=== PATIENT | female | born 2000 | race Hispanic/Latino ===

== ENCOUNTER 2023-04-18 11:24 | Emergency (ER) | payer OTHER ==
[~2023-04-18] VITALS: Ht 175.3 cm; Wt 124.7 kg
[2023-04-18 12:09] LABS: RAPID GROUP A STREP negative (NEGATIVE)
[2023-04-18 12:13] LABS: SARS-CoV-2, RNA, NAAT NEGATIVE SARS CoV-2 (NEGATIVE)
[2023-04-18 12:20] LABS: INFLUENZA TYPE B Negative For Type B (NEGATIVE)
[2023-04-18 12:26] LABS: INFLUENZA TYPE A Positive For Type A (NEGATIVE)
[2023-04-18] MEDS ORDERED: BENZ200C53 PO (12:51)
[2023-04-18] MEDS ORDERED: BROM118S48 PO (12:51)
[2023-04-18] MEDS ORDERED: ALBU90AE2 IH (12:51)
[2023-04-18] MEDS ORDERED: OSEL75 PO (12:51)
[2023-04-18 13:03] VITALS: BP 128/76; PULSE 88; RESP 18; O2SAT 99
== END 2023-04-18 13:05 | disposition home or self-care (01) ==
LOC: EDH 11:24
DX: J10.1 Influenza due to other identified influenza virus with other respiratory manifestations (principal); B34.9 Viral infection, unspecified; Z20.822 Contact with and (suspected) exposure to COVID-19
CPT/HCPCS: 87635; 87804; 87880

== ENCOUNTER 2023-08-14 22:17 | Emergency (ER) | payer OTHER ==
[~2023-08-14] VITALS: Ht 175.3 cm; Wt 126.6 kg
[~2023-08-14 22:17] MED LIST: ALBU90AE2 IH; BENZ200C53 PO; BROM118S48 PO; OSEL75 PO
[2023-08-14 23:14] LABS: BASOPHILS # (AUTO) 0.02 K/uL (0.00-0.20); BASOPHILS % (AUTO) 0.2 % (0.0-5.0); EOSINOPHILS # (AUTO) 0.04 K/uL (0.00-0.70); EOSINOPHILS % (AUTO) 0.4 % (0.0-8.0); HEMATOCRIT 38.9 % (36-48); IMMATURE GRANULOCYTE ABSOLUTE 0.04 K/uL (0-1); LYMPHOCYTES # (AUTO) 1.8 K/uL (1.0-4.8); LYMPHOCYTES % (AUTO) 16.2 % (21.0-51.0); MEAN CORPUSCULAR HEMOGLOBIN 29.8 pg (27.0-33.0); MEAN CORPUSCULAR VOLUME 85.3 fL (80-100); MONOCYTES # (AUTO) 0.6 K/uL (0.1-1.0); MONOCYTES % (AUTO) 5.6 % (3.0-13.0); NEUTROPHILS # (AUTO) 8.4 K/uL (1.8-7.7); NEUTROPHILS % (AUTO) 77.2 % (40.0-77.0); PLATELET COUNT (AUTO) 387 K/uL (130-400); RED BLOOD CELL COUNT(AUTO) 4.56 MIL/uL (4.00-5.50); RED CELL DISTRIBUTION WIDTH 12.4 % (11.0-15.5); WHITE BLOOD COUNT (AUTO) 10.9 K/uL (4.8-10.8)
[2023-08-14 23:22] LABS: CREATININE 0.8 mg/dL (0.5-1.0); POTASSIUM 3.5 mmol/L (3.5-5.1)
[2023-08-14] MEDS: ONDANSETRON 4MG INJ IVP ONE (23:30)
[2023-08-14] MEDS: FAMOTIDINE 20MG VIAL IV ONE (23:30)
[2023-08-14] MEDS: LACTATED RINGERS 1000ML 1,000 ML IV ONE (23:30)
[2023-08-14] MEDS: MORPHINE 4 MG SYG ONE (23:31)
[2023-08-14 23:32] LABS: BILIRUBIN,TOTAL 1.2 mg/dL (0.2-1.0); TOTAL PROTEIN, SERUM 8.7 g/dL (6.0-8.3)
[2023-08-14] MEDS: MORPHINE 2 MG SYG IVP ONE (23:40)
[2023-08-14 23:45] LABS: APPEARANCE,URINE CLEAR (CLEAR); BILIRUBIN,URINE NEGATIVE (NEGATIVE); COLOR,URINE LIGHT-YELLOW (YELLOW); GLUCOSE, URINE (UA) NEGATIVE (NEGATIVE); KETONES,URINE NEGATIVE (NEGATIVE); LEUKOCYTE ESTERASE ,URINE NEGATIVE Leu/uL (NEGATIVE); NITRATE,URINE NEGATIVE (NEGATIVE); PH,URINE 6.5 (5.0-8.0); PROTEIN,URINE NEGATIVE (NEGATIVE); UROBILINOGEN,URINE 0.2 mg/dL (0.2-1.0)
[2023-08-14 23:51] LABS: ADD UA MICROSCOPIC YES
[2023-08-14 23:53] LABS: BACTERIA,URINE RARE /HPF (None Seen); SQUAMOUS EPITHELIAL CELL,UR RARE /HPF (0-2)
[2023-08-15] MEDS ORDERED: FAMO-136 PO (02:15)
[2023-08-15] MEDS ORDERED: ONDA4TAB10 PO ×2 (02:15→02:30)
[2023-08-15 02:23] VITALS: BP 137/81; PULSE 97; RESP 18; O2SAT 97
[2023-08-15] MEDS ORDERED: FAMO20TA8 PO (02:30)
[2023-08-15] MEDS: LIDOCAINE HCL 2% VISCOUS 15 ML UDCUP PO ONE (02:39)
[2023-08-15] MEDS: MAG/ALUM/SIMETH 30 ML UDCUP PO ONE (02:39)
== END 2023-08-15 02:54 | disposition home or self-care (01) ==
LOC: EDH 22:17
DX: K52.9 Noninfective gastroenteritis and colitis, unspecified (principal); R10.2 Pelvic and perineal pain; Z79.899 Other long term (current) drug therapy
CPT/HCPCS: 99284; 96374; 96375; 96361; 80053; 84702; 85025; 81001; 36415; J7120; J3490; J2405; J2270

== ENCOUNTER 2025-02-17 23:45 | Emergency (ER) | payer BC ==
[~2025-02-17] VITALS: Ht 175.3 cm; Wt 112.5 kg
[~2025-02-17 23:45] MED LIST changes: -ALBU90AE2 IH; +ALBU90AE3 IH; +FAMO-136 PO; +FAMO20TA8 PO; +ONDA-243 PO
--- NOTE | 2025-02-18 00:13 | ERN ---
ED Note History of Present Illness Stated Complaint: BUMP ON CHEST, PAIN TO ARM AND CHEST Chief Complaint: Abscess Time Seen by MD: 23:46 Time Seen by Midlevel: 23:46 Dictation: The patient is a 24-year-old female with no past medical history who presents to the emergency department with complaints of lump to left breast in pain onset two days ago. Patient denies any fevers but reports feeling warmth. Denies any recent injury or insect bites. Allergies: Coded Allergies: No Known Drug Allergies (Unverified Allergy, Unknown, 04/18/23) Home Meds Active Scripts Clindamycin HCl (Clindamycin HCl) 300 Mg Capsule, 1 CAP PO QID for 10 Days, #40 CAP 0 Refills Prov:LOIS ROOT [facility] 02/18/25 Ondansetron (Ondansetron Odt) 4 Mg Tab.rapdis, 4 MG PO BID PRN for nausea for 5 Days, #3 TAB Prov:WILLIAM BRAND MD 08/15/23 Famotidine (Famotidine) 20 Mg Tablet, 20 MG PO DAILY for 30 Days, #30 TAB Prov:WILLIAM BRAND MD 08/15/23 Famotidine (Pepcid) 20 Mg Tablet, 20 MG PO DAILY for 30 Days, #30 TAB Prov:GIN SIERRA CNP 08/15/23 Ondansetron (Ondansetron Odt) 4 Mg Tab.rapdis, 4 MG PO Q6HPRN PRN for nausea, #16 TAB 0 Refills Prov:GIN SIERRA CNP 08/15/23 D-Methorphan Hb/P-Epd HCl/Bpm (Bromfed Dm Cough Syrup) 2 Mg-30 Mg-10 Mg/5 Ml Syrup, 118 ML PO Q4HPRN PRN for COUGH/COLD SYMPTOMS, #150 ML Prov:JUAN ARNOLD [facility] 04/18/23 Albuterol Sulfate (Proair Digihaler) 90 Mcg Aer.pw.bas, 90 MCG IH QID, #1 INHALER Prov:[facility]AN [facility] 04/18/23 Benzonatate (Benzonatate) 200 Mg Capsule, 200 MG PO TID PRN for COUGH for 14 Days, #42 CAP Prov:[facility] 04/18/23 Oseltamivir Phosphate (Tamiflu) 75 Mg Cap, 75 MG PO BID, #10 CAP Prov:JUAN ARNOLD [facility] [employer] 04/18/23 Past Medical History Past Medical History: No Pertinent History Surgical History: None LMP: Jan 28, 2025 RN Note Reviewed/Agreed w/PFSH: Yes Review of System Dictation Constitutional: Negative for fever,chills, and weight loss Eyes: Negative for injury, pain,redness, and discharge ENT: Negative for injury,pain or swelling Cardiovascular: Negative for chest pain, palpitations, and edema positive for left breast lump Respiratory: Negative for shortness of breath, cough, and wheezing, Abdomen/GI: Negative for abdominal pain, nausea, vomiting, diarrhea, and constipation Back: Negative for injury and pain : Negative for injury, bleeding and discharge MS/Extremity: Negative for injury and deformity Skin: Negative for rash, and discoloration Neuro: Negative for headache, weakness, numbness, tingling, and seizure Psych: Negative for suicide ideation, homicidal ideation, and hallucinations Initial Vital Sign VS Vital Signs Date Time Temp Pulse Resp B/P (MAP) Pulse Ox O2 Delivery O2 Flow Rate FiO2 02/18/25 00:01 98.2 94 16 162/87 100 Room Air 0 Physical Exam Dictation Vital Signs reviewed General Appearance: Alert, oriented x 3, no acute distress, well developed, nourished. Head and Face: non-traumatic. Eyes: PERRL, pink conjunctivas, eyelid no trauma, anterior chamber with arcus senilis. Ears: Pinnas intact and no signs of trauma or erythema ear canals clear and no discharge TM no erythema Nose: No discharge, no bleeding. Oropharynx: Mouth normal, tongue pink. pharynx clear,no erythema, tonsils no exudates, no abscesses noted, mucous membrane moist Neck: Supple, non-tender, no thyromegaly, no masses, no JVD, no bruits Breast: inDuration noted to 9 o'clock. left breast, erythema noted to left breast around 6:00 to 9:00, no drainage Chest:No tenderness, no crepitus, no paradoxical movement, no retractions Lungs:Clear, well-ventilated, symmetric, no rales, no wheezing, no rhonchi, no stridor, good breath sounds bilaterally Heart: Regular rate, regular rhythm, no murmur, no gallops Vascular: no peripheral edema, Abdomen: Soft, positive bowel sounds, nondistended, no guarding, nontender, no rebound, no masses no hepatomegaly, no splenomegaly, no Trevizo's sign, no hernias. Rectal: Deferred Genital: Deferred Neurological: Normal speech, motor function intact, sensory function intact Musculoskeletal: Neck nontender, full range of motion, back nontender, full range of motion, Extremities: nontender, full range of motion Skin: Color pink, dry, no turgor, no rash, no lacerations, no abrasions, no contusions. Lymphatic: Deferred Results (Laboratory/Radiology) Laboratory/Radiology Laboratory Tests Test 02/18/25 00:18 White Blood Count 10.1 K/uL (4.8-10.8) Red Blood Count 4.19 MIL/uL (4.00-5.50) Hemoglobin 12.9 g/dL (12.0-16.0) Hematocrit 38.1 % (36-48) Mean Corpuscular Volume 90.9 fL (79-99) Mean Corpuscular Hemoglobin 30.8 pg (27.0-33.0) Mean Corpuscular Hemoglobin Concent 33.9 g/dL (32.0-36.0) Red Cell Distribution Width 12.2 % (11.0-15.5) Platelet Count 396 K/uL (130-400) Mean Platelet Volume 8.5 fL (7.5-10.5) Immature Granulocyte % (Auto) 0.4 % (0-1) Neutrophils (%) (Auto) 55.8 % (40.0-77.0) Lymphocytes (%) (Auto) 35.3 % (21.0-51.0) Monocytes (%) (Auto) 6.6 % (3.0-13.0) Eosinophils (%) (Auto) 1.6 % (0.0-8.0) Basophils (%) (Auto) 0.3 % (0.0-5.0) Neutrophils # (Auto) 5.6 K/uL (1.8-7.7) Lymphocytes # (Auto) 3.6 K/uL (1.0-4.8) Monocytes # (Auto) 0.7 K/uL (0.1-1.0) Eosinophils # (Auto) 0.16 K/uL (0.00-0.70) Basophils # (Auto) 0.03 K/uL (0.00-0.20) Absolute Immature Granulocyte (auto 0.04 K/uL (0-1) Nucleated Red Blood Cells 0.0 % (0.0-0.19) Sodium Level 133 mmol/L (136-145) L Potassium Level 3.6 mmol/L (3.5-5.1) Chloride Level 96 mmol/L (101-111) L Carbon Dioxide Level 30 mmol/L (21-32) Blood Urea Nitrogen 12 mg/dL (7-18) Creatinine 0.6 mg/dL (0.5-1.0) Glomerular Filtration Rate Calc 130 mL/min (>90) Random Glucose 89 mg/dL (70-105) Total Calcium 9.0 mg/dL (8.5-10.1) Serum Test, Qualitative NEGATIVE (NEGATIVE) REASON: pain, r/o abscess ORDERING PHYSICIAN: [facility] [employer] PROCEDURE: BREAST LTD - US BREAST LIMITED UNILATERAL EXAM: US Left Breast Limited. CLINICAL HISTORY: Pain, rule out abscess. TECHNIQUE: Static sonographic images of the left breast were obtained utilizing a high-frequency linear transducer. COMPARISON: None provided. FINDINGS: At the 9:00???10:00 position of the left breast, an irregular hypoechoic area measuring approximately 2.5 ??? 1.0 ??? 3.1 cm is seen, associated with increased vascularity on color Doppler. Overlying skin redness is noted clinically. No definite drainable fluid collection is identified at this time. IMPRESSION: Hypoechoic area with increased vascularity in the left breast at the 9???10 o???clock position, measuring 2.5 ??? 1.0 ??? 3.1 cm; findings are suspicious for an inflammatory process or developing abscess. Clinical correlation and follow-up are recommended. /[facility] Reviewed?: Yes ED Course ED Course Orders Procedure Category Date Status Time Cbc With Differential LAB 02/18/25 Complete 00:09 Basic Metabolic Panel LAB 02/18/25 Complete 00:09 Testing, LAB 02/18/25 Complete Serum Hcg 00:09 Us Breast Limited US 02/18/25 Resulted Unilateral 00:09 Clindamycin 150mg Cap PHA 11/8/25 Transmitted (Cleocin 150mg Cap 03:00 Vital Signs Date Time Temp Pulse Resp B/P (MAP) Pulse Ox O2 Delivery O2 Flow Rate FiO2 02/18/25 00:01 98.2 94 16 162/87 100 Room Air 0 Medical Decision Making MDM The patient is a 24-year-old female with no past medical history who presents to the emergency department with complaints of lump to left breast in pain onset two days ago. Patient denies any fevers but reports feeling warmth. Denies any recent injury or insect bites. CBC showed no leukocytosis, no anemia, chemistry showed mild hyponatremia, hypochloremia normal renal function. Ultrasound revealed a hypodense mass could be related to inflammatory process or early abscess. On physical exam patient is in no acute distress, nontoxic appearance, stable vital signs. We will treat patient as outpatient with the antibiotics. Patient instructed to follow up with primary doctor to ensure symptoms are resolving. Differential diagnosis: Cellulitis, abscess, sepsis Need for hospitalization: Patient does not meet criteria for hospitalization. There are no social concerns with this patient. DX & DISP Disposition: Discharge Departure Impression: Primary Impression: Cellulitis of left breast Condition: Stable Scripts Clindamycin HCl (Clindamycin HCl) 300 Mg Capsule 1 CAP PO QID for 10 Days, #40 CAP 0 Refills Prov: LO[facility]OT [employer] 02/18/25 Additional Instructions: Your labs were unremarkable. There is a skin infection of your left breast. Take your antibiotics as prescribed and until finished. Follow up with the primary doctor in 1-2 days. FOLLOW-UP WITH PRIMARY CARE PROVIDER IN 1 TO 2 DAYS. TAKE MEDICATIONS DIRECTED HERE IN THE EMERGENCY ROOM. OKAY TO CONTINUE HOME MEDICATIONS UNLESS OTHERWISE DISCUSSED DURING YOUR VISIT IN THE EMERGENCY ROOM TODAY. RETURN TO YOUR NEAREST EMERGENCY ROOM IF SYMPTOMS WORSEN OR IF THERE IS NO IMPROVEMENT. CALL 911 IF YOU NEED IMMEDIATE ASSISTANCE. TAKE TYLENOL [id number] NEEDED AND IF NO CONTRAINDICATIONS ARE PRESENT. INCREASE ORAL HYDRATION. A WOUND CULTURE OR URINE CULTURE WAS ORDERED HERE IN THE EMERGENCY ROOM DEPARTMENT PLEASE FOLLOW-UP WITH PRIMARY CARE PROVIDER AND ADVISE THEM TO GET REPEAT PORTS FROM OUR FACILITY. IF YOU HAD ANY REGI WRAP/SPLINTS THAT WERE APPLIED HERE, PLEASE DO NOT REMOVE THEM UNTIL YOU SEE YOUR PRIMARY CARE OR SPECIALTY. Referrals: SELF,REFERRAL (PCP) Time of Disposition: 02:31 I have reviewed the case, and I agree with, Diagnosis and Plan [facility] Feb 18, 2025 00:13
[2025-02-18 00:33] LABS: CREATININE 0.6 mg/dL (0.5-1.0); GLOMERULAR FILTR. RATE CALC 130.0 mL/min (>90); GLUCOSE,RANDOM 89.0 mg/dL (70-105); SODIUM SERUM 133.0 mmol/L (136-145); UREA NITROGEN, BLOOD 12.0 mg/dL (7-18)
[2025-02-18 00:34] LABS: IMMATURE GRANULOCYTE ABSOLUTE 0.04 K/uL (0-1); NUCLEATED RED BLOOD CELLS 0.0 % (0.0-0.19); PLATELET COUNT (AUTO) 396 K/uL (130-400); RED BLOOD CELL COUNT(AUTO) 4.19 MIL/uL (4.00-5.50); RED CELL DISTRIBUTION WIDTH 12.2 % (11.0-15.5); WHITE BLOOD COUNT (AUTO) 10.1 K/uL (4.8-10.8)
--- NOTE | 2025-02-18 02:13 | HMCIMG ---
EXAM: US Left Breast Limited. CLINICAL HISTORY: Pain, rule out abscess. TECHNIQUE: Static sonographic images of the left breast were obtained utilizing a high-frequency linear transducer. COMPARISON: None provided. FINDINGS: At the 9:00???10:00 position of the left breast, an irregular hypoechoic area measuring approximately 2.5 ??? 1.0 ??? 3.1 cm is seen, associated with increased vascularity on color Doppler. Overlying skin redness is noted clinically. No definite drainable fluid collection is identified at this time. IMPRESSION: Hypoechoic area with increased vascularity in the left breast at the 9???10 o???clock position, measuring 2.5 ??? 1.0 ??? 3.1 cm; findings are suspicious for an inflammatory process or developing abscess. Clinical correlation and follow-up are recommended. /Carmen
[2025-02-18] MEDS ORDERED: CLIN-141 PO (02:31)
[2025-02-18] MEDS: CLINDAMYCIN 150 MG CAP ONE ×2 (02:49→02:59)
[2025-02-18] MEDS: CLINDAMYCIN 150 MG CAP PO SCH (02:58)
[2025-02-18 03:12] VITALS: BP 158/85; PULSE 88; RESP 17; TEMP 98; O2SAT 100
== END 2025-02-18 03:13 | disposition home or self-care (01) ==
LOC: EDH 23:45
DX: N61.0 Mastitis without abscess (principal)
CPT/HCPCS: 36415; 76642; 80048; 84703; 85025; 99284